=== PATIENT | female | born 1965 | race Caucasian/White ===

== ENCOUNTER 2023-10-08 09:32 | Emergency (ER) | payer BC, SELFPAY ==
[2023-10-08 09:50] VITALS: BP 135/84; PULSE 107; RESP 16; TEMP 36.8; O2SAT 99
== END 2023-10-08 09:52 | disposition left against medical advice (07) ==
LOC: EXPCOLL 09:43
PROVIDERS: Emergency Provider Nurse Practitioner Family
DX: Z53.21 Procedure and treatment not carried out due to patient leaving prior to being seen by health care provider (principal)
CPT/HCPCS: 99199

== ENCOUNTER 2023-10-28 12:25 | Emergency (ER) | payer BC, SELFPAY ==
[2023-10-28 12:32] VITALS: BP 128/73; PULSE 70; RESP 16; TEMP 36.3; O2SAT 100
--- NOTE | 2023-10-28 13:32 | ED.DENTAL ---
HPI - Dental/Oral General Chief complaint: Dental/Oral Stated complaint: irritation in mouth Time Seen by Provider: 10/28/23 13:32 Source: patient Mode of arrival: ambulatory Limitations: no limitations History of Present Illness HPI Narrative: 58 yo F presents with c/o pain/soreness to tongue. Redness on sides with sores and white thickness to top of tongue. Concerned she has strep. Was no augmentin for 3 wks for colitis. All systems reviewed and negative except as noted above. Related Data Allergies Allergy/AdvReac Type Severity Reaction Status Date / Time No Known Allergies Allergy Verified 10/28/23 12:47 Review of Systems Review of Systems: CONSTITUTIONAL: Denies fever, chills, or sweats. EYES: Denies visual changes, redness, or discharge. ENT: Denies rhinorrhea, congestion, sore throat, or otalgia. Reports pain and soreness to tongue. CARDIOVASCULAR: Denies chest pain, palpitations, or edema. RESPIRATORY: Denies cough or dyspnea. GASTROINTESTINAL: Denies abdominal pain, nausea, vomiting, or diarrhea. GENITOURINARY: Denies dysuria or hematuria. SKIN: Denies rash or itching. MUSCULOSKELETAL: Denies back pain, joint pain, or myalgia. NEUROLOGIC: Denies headache, numbness, or weakness. PSYCHIATRIC: Denies anxiety or depression. All other systems reviewed are negative, except as documented in HPI. PMFSH Comments At time of signature, agree with nursing past medical, surgical, social and family history. There is no relevant family history pertinent to the presenting complaint. Exam Narrative: GENERAL: This is a well-nourished, well-developed patient, in no apparent distress. HEAD: normocephalic, atraumatic. EYES: PERRL. Sclera clear/white. Vision is grossly intact. EARS: External ears normal NOSE: External nose normal MOUTH: redness to sides and tip of tongue with white plaques, top of tongues cover in white, thick NECK: Neck supple, non-tender without lymphadenopathy, masses or thyromegaly. CARDIOVASCULAR: Regular rate and rhythm without murmurs, gallops, or rubs. RESPIRATORY: Clear to auscultation. Breath sounds equal bilaterally. No wheezes, rales, or rhonchi. SKIN: warm, Dry, intact with no suspicious lesions or rash, good texture and turgor. NEURO: awake, alert, and oriented to person, place and time. There were no obvious focal neurologic abnormalities. EXTREMITIES: No joint tenderness, effusion, or edema noted. Course Course Level of Care: Express Care Visit Vital Signs Vital signs: Vital Signs Temperature 36.3 C L 10/28/23 12:32 Pulse Rate 70 10/28/23 12:32 Respiratory Rate 16 10/28/23 12:32 Blood Pressure 128/73 10/28/23 12:32 Pulse Oximetry 100 10/28/23 12:32 Oxygen Delivery Room Air 10/28/23 12:32 Temperature 36.3 C L 10/28/23 12:32 Pulse Rate 70 10/28/23 12:32 Respiratory Rate 16 10/28/23 12:32 Blood Pressure 128/73 10/28/23 12:32 Pulse Oximetry 100 10/28/23 12:32 Oxygen Delivery Room Air 10/28/23 12:32 Reviewed MDM - Dental/Oral MDM Narrative Medical decision making narrative: Patient is aware of diagnosis, understands and agrees to treatment plan. Anticipatory guidance given. Patient agrees to follow-up as directed and is aware of reasons to seek care at the emergency department. Portions of this record may have been created with voice recognition software Differential Diagnosis Differential diagnosis: Likely other (thrush) Discharge Plan Discharge Clinical Impression: Oral thrush Patient Disposition: Home, Self-Care Condition: Stable Instructions: Nystatin (By mouth), Oral Candidiasis (ED) Additional Instructions: Swish Nystatin around in mouth, hold in mouth for a minutes before swallowing. Do this 4 times a day. Follow-up your primary care physician if symptoms are not improving. Prescriptions: New nystatin 100,000 unit/mL suspension 5 ml PO QID 10 Days Qty: 200 0RF Rx Instructions:
== END 2023-10-28 13:41 | disposition home or self-care (01) ==
PROVIDERS: Emergency Provider Nurse Practitioner Family
DX: B37.0 Candidal stomatitis (principal); K21.9 Gastro-esophageal reflux disease without esophagitis
CPT/HCPCS: 99213; G0463

== ENCOUNTER 2024-04-19 15:22 | Emergency (ER) | payer BC, MEDICAID, SELFPAY ==
--- NOTE | 2024-04-19 15:26 | ED.SKABFB ---
HPI - Skin/Abscess/Foreign Bdy General Chief complaint: Wound/Laceration Stated complaint: Insect Bite On Arm Time Seen by Provider: 04/19/24 15:35 Source: patient, RN notes reviewed and old records reviewed Mode of arrival: ambulatory Limitations: no limitations History of Present Illness HPI narrative: 59-year-old female presents to the [facility] with a cat bite to her right forearm. States that was her personal care it that bit her on Friday, 3 days ago. Patient states the cat is up-to-date on all of its immunizations. Declined tetanus update. Tetanus up to date: no Treatments prior to arrival: other (Wound cleansing) Related Data Allergies Allergy/AdvReac Type Severity Reaction Status Date / Time No Known Allergies Allergy Verified 04/19/24 15:55 Review of Systems Review of Systems: All systems reviewed & are unremarkable except as noted in HPI and below Constitutional: Constitutional: Reports no additional constitutional complaints Eyes: Eyes: Reports no additional eye complaints ENT: Reports system reviewed and no additional complaints, except as documented Cardiovascular: Cardiovascular: Reports no additional cardiovascular complaints, Denies chest pain and Denies dyspnea Respiratory: Respiratory: Reports no additional respiratory complaints, Denies chest congestion, Denies cough and Denies dyspnea Gastrointestinal: Gastrointestinal: Reports no additional gastrointestinal complaints, Denies abdominal pain, Denies nausea and Denies vomiting Musculoskeletal: Musculoskeletal: Reports no additional musculoskeletal complaints Integumentary/Breasts: Skin/Breast: Reports as per HPI Neurologic: Reports system reviewed and no additional complaints, except as documented Psychiatric: Psychiatric: Reports no additional psychiatric complaints Allergic/Immunologic: Allergic/Immunologic: Reports no additional allergic/immunologic complaints PMFSH Comments At the time of my signature, I reviewed and agree with the nursing past medical, surgical, social, and family history. There is no relevant family history pertinent to the patient complaint. Exam Const: General: cooperative, healthy appearing, comfortable, no acute distress, well developed, alert and well nourished Nutritional Appearance: well nourished Orientation/consciousness: patient oriented x3 Limitations: no limitations HENMT: Head: normal to inspection Ears: hearing grossly normal bilaterally and external ears normal Face/Nose/Sinus: Normal external nose present, Normal nares present, Normal nasal mucous membranes and turbinates present, normal facial exam and face symmetric Face and sinus: normal facial exam and face symmetric Eyes: General: appearance normal, both eyes and all related structures Alignment and Position: alignment normal Periorbital: periorbital findings normal Pupils: Equal, round and reactive pupils present EOM: EOMs intact bilaterally Neck: Neck: normal visual inspection, full ROM, no lymphadenopathy and no meningeal signs Chest: Chest palpation & inspection: normal inspection of the chest Resp: Effort & Inspection: normal respiratory effort and able to speak in complete sentences Cardio: Rate: regular rate Skin: General skin exam: normal color and no rashes or lesions noted Lesions: no lesions Rashes: no rashes Trauma: no lacerations or abrasions Other: Scabbed over puncture if surrounding erythema to the right distal forearm. Reports cat bite No fluctuance, no drainage, no increased warmth Neuro: General: patient oriented x3, gait normal, tone normal, moves all extremities and no meningeal signs Cranial nerves: Yes Equal, round and reactive pupils present Cognition (Neuro): normal cognition Speech: normal speech Gait exam (Neuro): Normal gait present Extrem: General: normal to inspection, full ROM, capillary refill normal and normal gait Right upper extremity: wrist normal to inspection, normal ROM and normal vasc
[2024-04-19 15:36] VITALS: BP 116/74; PULSE 82; RESP 16; TEMP 36.8; O2SAT 97
[2024-04-19] MEDS: TETANUS,DIPHTHERIA,AC PERTUSSIS ADULT (0.5 ML) BOOSTRIX IM (15:48)
== END 2024-04-19 16:11 | disposition home or self-care (01) ==
PROVIDERS: Emergency Provider Nurse Practitioner
DX: S51.831A Puncture wound without foreign body of right forearm, initial encounter (principal); W55.01XA Bitten by cat, initial encounter; Z23 Encounter for immunization; K21.9 Gastro-esophageal reflux disease without esophagitis
CPT/HCPCS: 90471; 90715; 99213; G0463

== ENCOUNTER 2025-02-26 08:41 | Emergency (ER) | payer OTHER, SELFPAY ==
[2025-02-26 08:46] VITALS: BP 112/73; PULSE 72; RESP 18; TEMP 36.9; O2SAT 98
--- NOTE | 2025-02-26 09:16 | ED_ITS ---
HPI - Ear Problem General Chief complaint: Ear Stated complaint: left ear pain/blocked cough Time Seen by Provider: 02/26/25 09:17 Source: patient, RN notes reviewed and old records reviewed Mode of arrival: ambulatory Limitations: no limitations History of Present Illness HPI Narrative: 59-year-old female who presents to [facility] with complaints of left ear discomfort with sinus congestion and drainage for the past 1.5 weeks with no fevers noted. Patient reports that she started with a cough yesterday which is nonproductive. Patient reports that she has been taking Tylenol and Sudafed PE otc for her symptoms. Patient reports facial pressure mainly to the left side of her face and reports that nasal drainage is now greenish in color. MD Complaint: ear pain and other (sinus congestion and drainage, sinus pressure left facial area) Location: left ear Duration: constant Severity: moderate Discharge from ear: Reports no Treatment prior to arrival: oral analgesic (Tylenol and Sudafed PE) Related Data Allergies Allergy/AdvReac Type Severity Reaction Status Date / Time No Known Allergies Allergy Verified 02/26/25 08:50 Review of Systems Review of Systems: CONSTITUTIONAL: Reports malaise,no chills, sweats, or fever. EYES: Denies visual changes, redness, or discharge. ENT: Reports rhinorrhea, congestion, sinus pain, left otalgia and no sore throat. CARDIOVASCULAR: Denies chest pain, palpitations, or edema. RESPIRATORY: Reports dry cough.? Denies dyspnea. GASTROINTESTINAL: Denies abdominal pain, nausea, vomiting, diarrhea SKIN: Denies rash or itching. MUSCULOSKELETAL: Denies myalgia. NEUROLOGIC: Denies headache. All systems reviewed & are unremarkable except as noted in HPI and below PMFSH Surgical History Surgical History (Updated 02/26/25 @ 09:29 by Kassi Nieto NP) History of ankle surgery fracture with hardware Social History Social History Smoking status: Never smoker Alcohol intake: current Alcohol use details: social rare Substance use type: does not use Living arrangements: with family Gender identity (if verbalized by the patient): Female Comments At time of signature, agree with nursing past medical, surgical, social and family history. There is no relevant family history pertinent to the presenting complaint Exam Narrative: GENERAL: Well-appearing, well-nourished, and in no acute distress. HEAD: Normocephalic EYES: PERRLA, conjunctivae clear ENT: Nares clear, turbinates edematous and erythematous, greenish tinged discharge.sinus pressure mainly left side Mucous membranes moist. TM pearly gaming with dull light reflex bilaterally; no tragal tenderness. Oropharynx erythematous without lesions. Tonsils not enlarged and without exudate, no drooling, no hoarseness, no trismus, uvula midline.post nasal drainage NECK: Supple. No lymphadenopathy CHEST: Clear to auscultation, breath sounds equal. No wheezing, rhonchi, rales, or stridor. No respiratory distress, speaks in full sentences.cough present dry with SAO2 98% on room air HEART: Regular rate and rhythm. No murmur heard. SKIN: Warm, dry, no rash. NEURO: Alert and oriented x3. PSYCH: Normal mood and affect Course Course Emergency Course: Patient is aware of diagnosis, understands and agrees to treatment plan.? Anticipatory guidance given.? Patient agrees to follow-up as directed and is aware of reasons to seek care at the emergency department. Portions of this record may have been created with voice recognition software Level of Care: Express Care Visit Vital Signs Vital signs: Vital Signs Temperature 36.9 C 02/26/25 08:46 Pulse Rate 72 02/26/25 08:46 Respiratory Rate 18 02/26/25 08:46 Blood Pressure 112/73 02/26/25 08:46 Pulse Oximetry 98 02/26/25 08:46 Oxygen Delivery Room Air 02/26/25 08:46 Temperature 36.9 C 02/26/25 08:46 Pulse Rate 72 02/26/25 08:46 Respiratory Rate 18 02/26/25 08:46 Blood Pressure 112/73 02/26/25 08:46 Pulse Oximetry 98 02/26/25 08:46 Oxygen Delivery Room Air 02/26/25 08:46 Reviewed Medical Decision Making Differential Diagnosis Differential Diagnosis: URI, sinusitis,cough,viral infection, otalgia Medical Records Medical records reviewed: Yes I reviewed the external patient's medical records. Vital Signs Vital Signs: Vital Signs Temperature 36.9 C 02/26/25 08:46 Pulse Rate 72 02/26/25 08:46 Respiratory Rate 18 02/26/25 08:46 Blood Pressure 112/73 02/26/25 08:46 Pulse Oximetry 98 02/26/25 08:46 Oxygen Delivery Room Air 02/26/25 08:46 Temperature 36.9 C 02/26/25 08:46 Pulse Rate 72 02/26/25 08:46 Respiratory Rate 18 02/26/25 08:46 Blood Pressure 112/73 02/26/25 08:46 Pulse Oximetry 98 02/26/25 08:46 Oxygen Delivery Room Air 02/26/25 08:46 reviewed Critical Care Time Critical Care Time Critical Care Time: No Discharge Plan Discharge Clinical Impression: Sinusitis Qualifiers: Sinusitis location: pansinusitis Chronicity: acute Recurrence: non-recurrent Qualified Code(s): J01.40 - Acute pansinusitis, unspecified Patient Disposition: Home Condition: Stable Instructions: Antibiotic Form, Sinusitis (ED) Additional Instructions: Increase fluids especially juices and water [id number] cough and cold medicine of your choice for your symptoms, recommend Robitussin or Delsym for cough Zyrtec Claritin or Pia daily include plain Sudafed twice daily Tylenol or ibuprofen for any fever pain Nasal saline daily and as needed heat to the face 20-30 minutes 4-6 times a day for pain Salt water gargles, throat lozenges or throat sprays as desired Antibiotic as directed--finished the medication If your symptoms persist, change or worsen significantly before you can contact your personal physician then please, without delay, go to the emergency department for further evaluation. Follow-up with PCP in 7-10 days or sooner if needed Patient Language: Colombian Prescriptions: New amoxicillin-pot clavulanate 875-125 mg tablet 1 tablet PO Q12H Qty: 20 0RF Rx Instructions: Take all doses with food recommend probiotic or activity yogurt while taking this medicine Follow-up/Referrals: PHYSICIAN NOT ON STAFF,NONSTAFF [Primary Care Provider] - Time of Disposition: 09:39 Quality Victoria Coma Scale Eyes: Open Verbal: Oriented and Alert Motor: Follows Commands Alexey Coma Total Score: 15
== END 2025-02-26 09:45 | disposition home or self-care (01) ==
PROVIDERS: Emergency Provider Registered Nurse
DX: J01.40 Acute pansinusitis, unspecified (principal)
CPT/HCPCS: 99213; G0463